=== PATIENT | female | born 1970 | race Caucasian/White ===

== ENCOUNTER → 2025-01-29 09:43 | Outpatient (REF) | payer OTHER, SELFPAY | LOC: RAD 09:43 | PROVIDERS: ATTENDING PHYSICIAN Nurse Practitioner Adult Health | DX: M54.42 Lumbago with sciatica, left side (principal) | CPT/HCPCS: 72110 ==

== ENCOUNTER → 2025-02-19 06:39 | Outpatient (REF) | payer OTHER, SELFPAY | LOC: PAVMRI 06:39 | PROVIDERS: ATTENDING PHYSICIAN Nurse Practitioner Adult Health; FAMILY PHYSICIAN Internal Medicine | DX: M54.42 Lumbago with sciatica, left side (principal) | CPT/HCPCS: 72148 ==